=== PATIENT | female | born 2005 | race Hispanic/Latino ===

== ENCOUNTER 2024-09-14 07:39 | Emergency (ER) | payer SELFPAY ==
[2024-09-14 07:41] VITALS: BP 142/82
[2024-09-14 08:19] VITALS: BMI 39.3
[2024-09-14 08:23] VITALS: BP 107/95
[2024-09-14] MEDS: NSS 1000 IV (08:38)
[2024-09-14] MEDS: ZOFRAN 4 MG IV (08:39)
[2024-09-14] MEDS: PEPCID 20 MG IV (08:39)
[2024-09-14 08:47] LABS: % Basophils 0.2 % (0-2); % Eosinophils 0.4 % (0-6); % Immature Granulocytes 0.4 % (0-0.5); % Lymphocytes 6.9 % (20.5-51.1); % Monocytes 4.5 % (1.7-9.3); % Neutrophils 87.6 % (42.2-75.2); Absolute Eosinophils 0.1 10^3/uL (0-0.7); Absolute Immature Granulocytes 0.1 10^3/uL (0-0.05); Absolute Lymphocytes 0.9 10^3/uL (1.2-3.4); Absolute Monocytes 0.6 10^3/uL (0.1-0.6); Absolute Neutrophils 11.1 10^3/uL (1.4-6.5); Hematocrit 44.7 % (37.0-47.0); Hemoglobin 14.7 g/dL (12.0-16.0); Mean Corp Hgb Conc. 32.9 g/dL (33.0-37.0); Mean Corpuscular Hgb 28.3 pg (27.0-31.0); Mean Platelet Volume 10.3 fL (7.4-10.4); Nucleated Red Blood Cells % 0 %; Platelet Count 245 10^3/uL (130-400); Red Cell Dist. Width 13.1 % (11.5-14.5); White Blood Cell Count 12.7 10^3/uL (4.8-10.8)
[2024-09-14 09:27] LABS: Urine Albumin Negative (Neg - Trace); Urine Bilirubin Negative (Negative); Urine Character Slightly Cloudy (Clear); Urine Color Yellow; Urine Glucose Negative (Negative); Urine Ketone Negative (Negative); Urine Leukocyte Negative (Negative); Urine Nitrite Negative (Negative); Urine Occult Blood Negative (Negative); Urine Specific Gravity 1.015 (<1.030); Urine Urobilinogen Negative (Neg - 1+)
--- NOTE | 2024-09-14 10:10 | ED.GENMED ---
History of Present Illness
General
Chief Complaint: Abdominal Symptoms
Source: patient
Exam Limitations: none
Time Seen by Provider: 09/14/24 07:56
Nursing documentation reviewed up to this point in time: agreed with
History of Present Illness
History of Present Illness:
19-year-old female presenting to the emergency department today with concerns of generalized abdominal pain nausea vomiting diarrhea occurred this morning. Multiple episodes of vomiting multiple episodes of loose brown stool. Cool abdominal pain
any fevers chest pain shortness of breath.
Review of Systems
Review of Systems
Allergies reviewed?: Yes
All Other Systems: ROS reviewed and negative except as documented in HPI and ROS
Phy Exam
Physical Exam
Physical Exam:
GENERAL: Alert , in no apparent distress
EYE: pupils equal and reactive
NECK: Supple, no significant adenopathy.
ENT: o/p clr, mmm.
CARDIAC: Regular rate and rhythm .
LUNGS: Clear breath sounds bilaterally, no acute respiratory distress, no wheezes/rales/rhonchi
ABDOMEN: Soft, without focal tenderness, no r/g, no cvat
NEUROLOGICAL: Alert and oriented, no focal neuro deficits
SKIN: Warm and dry, skin intact.
MUSCULOSKELETAL: No edema, well perfused.
PSYCH: Normal and appropriate interaction.
Course
Orders/Labs/Results
Orders:
Orders
09/14/24 08:04
0.9% Sodium Chloride 1000 ml [Nss] 1,000 ml IV BOLUS
Famotidine [Pepcid] 20 mg IV NOW STA
Ondansetron Injectable [Zofran] 4 mg IV NOW STA
Test Result ONCE
09/14/24 08:26
Complete Blood Count/With Diff Urgent
09/14/24 09:12
Urinalysis Reflex To Culture Urgent
Date Specimen was Collected: 09/14/24
Time Specimen was Collected: 09:09
09/14/24 10:09
Comprehensive Metabolic Panel Urgent
HCG, Serum Qualitative Screen Urgent
Lipase Urgent
Abnormal Lab Results
09/14/24 09/14/24
08:26 10:09
WBC 12.7 H 10^3/uL
(4.8-10.8)
MCHC 32.9 L g/dL
(33.0-37.0)
Abs Immat Gran (auto) 0.1 H 10^3/uL
(0-0.05)
Absolute Neuts (auto) 11.1 H 10^3/uL
(1.4-6.5)
Absolute Lymphs (auto) 0.9 L 10^3/uL
(1.2-3.4)
Neutrophils % 87.6 H %
(42.2-75.2)
Lymphocytes % 6.9 L %
(20.5-51.1)
Creatinine 0.5 L mg/dL
(0.6-1.0)
Glucose 118 H mg/dl
(70-99)
09/14/24 08:26
09/14/24 10:09
Vital Signs
Initial and Last Documented VS:
Initial Vital Signs
Temp Pulse Resp BP Pulse Ox
98.3 F 92 16 142/82 98
09/14/24 07:41 09/14/24 07:41 09/14/24 07:41 09/14/24 07:41 09/14/24 07:41
Last Documented Vital Signs
Temp Pulse Resp BP Pulse Ox
98.3 F 86 16 107/95 98
09/14/24 07:41 09/14/24 08:19 09/14/24 07:41 09/14/24 08:23 09/14/24 07:41
MDM/Problems Addressed
MDM/Problems Addressed:
19-year-old female presenting to the emergency department today with concerns of crampy abdominal pain nausea vomiting diarrhea starting earlier this morning. Normal vital signs upon arrival no vomiting here. Abdomen soft and benign. Likely
consistent with stomach bug considering abrupt nausea vomiting and diarrhea. Feeling much better here after receiving Zofran and fluids. Stable for discharge return precautions given.
*Critical Care Note
Total Time (30-74mins, 75-104mins- exclusive of procedures): Not Applicable
ED Attending Note
-
Portions of this chart may have been created with voice recognition software.� Occasional wrong word or��sound alike� substitutions may have occurred due to the inherent limitations of voice recognition software.
Discharge Plan
Departure
Patient Disposition: Home (Routine Discharge)
Date of Disposition: 09/14/24
Time of Disposition: 11:12
Patient with high blood pressure during this ER visit?: No
Condition: Good
Covid-19: Not Applicable
Discharge Problem:
Nausea, vomiting, and diarrhea
Instructions: Nausea and Vomiting, Adult (DC)
Prescriptions:
New
ondansetron 4 mg tablet,disintegrating
4 mg PO Q6H PRN (Reason: nausea and vomiting) Qty: 7 0RF
Referrals:
NONE,* [Family Provider] -
Stand Alone Forms: Return to Work
Activity Restrictions/Additional Instructions:
You came to the emergency department today with concerns of vomiting and diarrhea. Here you had a reassuring assessment. Please take the prescribed occasions every 8 hours as needed for ongoing symptoms. Return to the emergency department any
worsening, new or concerning symptoms.
Interventions
Interventions:
*Risk Screen - Suicide Last Done: 09/14/24 07:41
*General Assessment Last Done: 09/14/24 07:41
*Neglect/Abuse Screening Last Done: 09/14/24 07:41
ED- Fall Risk Assessment Last Done: 09/14/24 08:19
*ED COVID-19 Vaccine History Last Done: 09/14/24 08:19
TG-Nkdyib-Fqkumzgazg Assessment Last Done: 09/14/24 08:19
Discharge Date and Time
Print Language: YI
[2024-09-14 10:41] LABS: HCG, Serum Qualitative Screen Negative
[2024-09-14 10:45] LABS: ALT (SGPT) 29 U/L (0-35); AST (SGOT) 24 U/L (14-36); Albumin 4.1 g/dl (3.5-5.0); Alkaline Phosphatase 87 U/L (38-126); Blood Urea Nitrogen 17 mg/dl (7-17); Calcium 8.7 mg/dl (8.4-10.2); Carbon Dioxide 22 mmol/L (22-30); Chloride 107 mmol/L (98-107); Estimated Creatinine Clearance > 125 ml/min; Glucose 118 mg/dl (70-99); Lipase 53 U/L (23-300); Sodium 140 mmol/L (135-145); Total Bilirubin 0.6 mg/dl (0.2-1.3); eGFR > 60.00
[2024-09-14 11:26] VITALS: BP 118/52
== END 2024-09-14 11:29 | disposition home or self-care (01) ==
LOC: EMR 07:39
PROVIDERS: Physician Assistant; EMERGENCY PHYSICIAN Student in an Organized Health Care Education/Training Program
DX: R11.2 Nausea with vomiting, unspecified (principal); R19.7 Diarrhea, unspecified
CPT/HCPCS: 99284; 96374; 96375; 96361; 80053; 81003; 83690; 84703; 85025

== ENCOUNTER 2024-11-23 13:17 | Emergency (ER) | payer SELFPAY ==
[2024-11-23 13:21] VITALS: BMI 38.5
--- NOTE | 2024-11-23 13:43 | ED.GENMED ---
History of Present Illness
General
Chief Complaint: Vaginal Bleeding
Source: patient
Exam Limitations: none
Time Seen by Provider: 11/23/24 13:40
Nursing documentation reviewed up to this point in time: agreed with
History of Present Illness
History of Present Illness:
19-year-old female 10 days past IUD placement at [facility] in [place]. She had a few cramps since then and She states this is the week of her menses which typically bleeding starts to slow on day 3 but 2 days ago developed heavy
bleeding with clots. Between pads and tampons she has used 'multiple' yesterday and so far, since 10 a.m. today is on her 3rd pad.
Denies feeling weak or dizzy, denies CP, SOB.
Past History
Past History
ED Past Medical History: None
ED Past Surgical History: None
Social History
Tobacco: Non-smoker
Alcohol: None
Personal: Single
Living: other (with boyfriend)
Employment: Employed ([employer])
Review of Systems
Review of Systems
Allergies reviewed?: Yes
All Other Systems: ROS reviewed and negative except as documented in HPI and ROS
Constitutional: Denies fever, fatigue or chills
Respiratory: Denies trouble breathing
Cardiac: Denies chest pain
ABD/GI: Reports abdominal pain (cramps); Denies nausea, vomiting or diarrhea
: Denies dysuria, frequency or difficulty voiding
Musculoskeletal: Reports no symptoms
Skin: Reports no symptoms
Neurological: Reports no symptoms
Phy Exam
Physical Exam
Physical Exam:
GENERAL: No acute distress. A&Ox3.
CONSTITUTIONAL: Afebrile.
EYES: clear, conjunctivae normal
ENMT: moist mucus membranes
RESPIRATORY: Regular respirations, nonlabored, lungs clear.
CARDIOVASCULAR: Regular rate and rhythm, no murmurs, no rubs.
GI: Soft, nontender, normal BS
: small amount of blood on pad
MUSCULOSKELETAL: Moves with ease. Well perfused.
SKIN: Warm, dry, pink
PSYCH: Normal mood and affect. Well kept, interactive and appropriate
NEUROLOGIC: Awake, alert and oriented. No focal neurological deficits
Course
Orders/Labs/Results
Orders:
Orders
11/23/24 13:35
Complete Blood Count/With Diff Urgent
Comprehensive Metabolic Panel Urgent
HCG, Serum Qualitative Screen Urgent
Comment: ADD ON
11/23/24 13:41
Add On- LAB Urgent
Tests Added?: HCG serum qualitative
11/23/24 13:42
US Pelvis W Transvag Combined Urgent
Comment:
Reason For Exam: heavy bleeding/clots, abd pain post IUD placed.
Abnormal Lab Results
11/23/24
13:35
WBC 11.1 H 10^3/uL
(4.8-10.8)
Absolute Neuts (auto) 7.2 H 10^3/uL
(1.4-6.5)
Absolute Monos (auto) 0.7 H 10^3/uL
(0.1-0.6)
BUN 20 H mg/dl
(7-17)
Glucose 104 H mg/dl
(70-99)
11/23/24 13:35
11/23/24 13:35
Vital Signs
Initial and Last Documented VS:
Initial Vital Signs
Temp Pulse Resp Pulse Ox
97.9 F 93 18 99
11/23/24 13:21 11/23/24 13:21 11/23/24 13:21 11/23/24 13:21
Last Documented Vital Signs
Temp Pulse Resp Pulse Ox
97.9 F 93 18 99
11/23/24 13:21 11/23/24 13:21 11/23/24 13:21 11/23/24 13:21
MDM/Problems Addressed
Differential Diagnosis Includes:
menstrual cramps and bleeding, displaced IUD
MDM/Problems Addressed:
19-year-old female 10 days past IUD placement at [facility] in [place]. She had a few cramps since then and She states this is the week of her menses which typically bleeding starts to slow on day 3 but 2 days ago developed heavy
bleeding with clots. Between pads and tampons she has used 'multiple' yesterday and so far, since 10 a.m. today is on her 3rd pad.
Denies feeling weak or dizzy, denies CP, SOB.
Afebrile, NAD, small amount blood on pad, no clots
3:30 PM:
CBC, CMP with no clinically significant abnormality
hCG negative
Ultrasound pelvis with transvaginal combined: Radiology report read: No abnormality noted, IMPRESSION:
The IUD appears well-positioned within the endometrial canal.
BP 128/72 No significant bleeding since arrival
stable for discharge
Most likely menstrual bleeding
*Critical Care Note
Total Time (30-74mins, 75-104mins- exclusive of procedures): Not Applicable
ED Attending Note
-
Portions of this chart may have been created with voice recognition software.� Occasional wrong word or��sound alike� substitutions may have occurred due to the inherent limitations of voice recognition software.
Discharge Plan
Departure
Patient Disposition: Home (Routine Discharge)
Date of Disposition: 11/23/24
Time of Disposition: 15:29
Patient with high blood pressure during this ER visit?: No
Discharge Problem:
Heavy menstrual period
Instructions: Heavy Periods (DC), Intrauterine devices (IUDs)
Prescriptions:
No Action
ondansetron 4 mg tablet,disintegrating
4 mg PO Q6H PRN (Reason: nausea and vomiting) Qty: 7 0RF
Referrals:
Your, TAX ADVISOR provider [Other] - As needed
NONE,* [Family Provider] -
Activity Restrictions/Additional Instructions:
As we discussed, your workup here today shows nothing worrisome.
Your IUD is in the proper position.
See your TAX ADVISOR provider if your bleeding persists beyond 1 week or gets heavier or your abdominal cramping gets worse.
Tylenol or Ibuprofen as needed for cramps.
Interventions
Interventions:
*ED COVID-19 Vaccine History Last Done: 11/23/24 13:21
*Nursing Disposition Last Done: 11/23/24 16:04
Discharge Date and Time
Discharge Date/Time: 11/23/24 16:04
Print Language: PORTUGUESE
[2024-11-23 13:58] LABS: % Basophils 0.4 % (0-2); % Eosinophils 1.5 % (0-6); % Immature Granulocytes 0.4 % (0-0.5); % Lymphocytes 26.8 % (20.5-51.1); % Monocytes 5.9 % (1.7-9.3); Absolute Eosinophils 0.2 10^3/uL (0-0.7); Absolute Monocytes 0.7 10^3/uL (0.1-0.6); Absolute Neutrophils 7.2 10^3/uL (1.4-6.5); Hemoglobin 14.3 g/dL (12.0-16.0); Mean Corp Hgb Conc. 33.3 g/dL (33.0-37.0); Mean Corpuscular Volume 84.1 fL (81.0-99.0); Mean Platelet Volume 9.9 fL (7.4-10.4); Nucleated Red Blood Cells % 0 %; Platelet Count 266 10^3/uL (130-400); Red Blood Cell Count 5.11 10^6/uL (4.20-5.40); Red Cell Dist. Width 12.8 % (11.5-14.5); White Blood Cell Count 11.1 10^3/uL (4.8-10.8)
[2024-11-23 14:08] LABS: ALT (SGPT) 31 U/L (0-35); AST (SGOT) 26 U/L (14-36); Albumin 4.5 g/dl (3.5-5.0); Alkaline Phosphatase 96 U/L (38-126); Blood Urea Nitrogen 20 mg/dl (7-17); Calcium 10.1 mg/dl (8.4-10.2); Carbon Dioxide 28 mmol/L (22-30); Chloride 107 mmol/L (98-107); Estimated Creatinine Clearance 105 ml/min; Glucose 104 mg/dl (70-99); Potassium 4.3 mmol/L (3.5-5.1); Sodium 142 mmol/L (135-145); Total Bilirubin 0.6 mg/dl (0.2-1.3); eGFR > 60.00
[2024-11-23 14:13] LABS: HCG, Serum Qualitative Screen Negative
== END 2024-11-23 16:04 | disposition home or self-care (01) ==
LOC: EMR 13:17
PROVIDERS: Emergency Medicine; EMERGENCY PHYSICIAN Emergency Medicine
DX: N92.0 Excessive and frequent menstruation with regular cycle (principal); Z97.5 Presence of (intrauterine) contraceptive device
CPT/HCPCS: 99284; 76830; 76856; 80053; 84703; 85025

== ENCOUNTER 2025-08-25 09:18 | Emergency (ER) | payer OTHER, SELFPAY ==
[2025-08-25 09:24] VITALS: BP 119/83
[2025-08-25 10:14] VITALS: BMI 37.7
[2025-08-25 10:44] LABS: COVID-19 Antigen Negative (Negative)
--- NOTE | 2025-08-25 10:52 | ED.GENMED ---
History of Present Illness
General
Chief Complaint: Breathing Problem
Source: patient
Exam Limitations: none
Time Seen by Provider: 08/25/25 09:35
Nursing documentation reviewed up to this point in time: agreed with
History of Present Illness
History of Present Illness:
Patient is a 20-year-old female with history of asthma presents to the ER for evaluation. Patient's had a cough and nasal congestion since Monday. She does have a diagnosis of asthma and has had an inhaler waiting for her at the pharmacy however
has not gotten the chance to pick it up. She complains of persistent cough. She denies any fever or chills. She does vape marijuana and nicotine.
She denies any fever or chills.
Past History
Past History
ED Past Medical History: None
ED Past Surgical History: None
Social History
Tobacco: Non-smoker
Alcohol: None
Personal: Single
Living: other (with boyfriend)
Employment: Employed ([employer])
Phy Exam
General Physical Exam
General Presentation: no apparent distress
General age: appears stated age
General Skin: warm and dry
General Habitus: normal
General Mental: alert
General Hydration: appears well hydrated
Cardiovascular Exam
Cardiovascular Exam: regular rate/rhythm, no murmur and normal peripheral pulses
Pulmonary Exam
Pulmonary Exam: lungs clear, no respiratory distress and other (+ cough mildly decreased )
Neurological Exam
Neurological Exam: alert and oriented x3
Musculoskeletal Exam
Musculoskeletal Exam: full ROM
Skin Exam
Skin Exam: normal color and warm/dry
Psychiatric Exam
Psychiatric Exam: normal mood/affect
Course
Orders/Labs/Results
Orders:
Orders
08/25/25 10:13
COVID-19 Antigen Urgent
Source: Nasal Swab
Influenza A+B Rapid Molecular Urgent
AMANDA Source: Nasal Swab
Specimen Description:
08/25/25 10:53
Albuterol Nebs [Ventolin Nebules] 2.5 mg INH R NOW STA
Dexamethasone Pf [Decadron] 10 mg PO NOW STA
Chest [CR Chest - 2 Views ] Urgent
Comment:
Reason For Exam: cough
08/25/25 12:45
Ipratropium/Albuterol Sulfate [Duoneb] 3 ml INH R NOW STA
Vital Signs
Initial and Last Documented VS:
Initial Vital Signs
Temp Pulse Resp BP Pulse Ox
98.4 F 86 16 119/83 95
08/25/25 09:24 08/25/25 09:24 08/25/25 09:24 08/25/25 09:24 08/25/25 09:24
Last Documented Vital Signs
Temp Pulse Resp BP Pulse Ox
98.4 F 92 16 119/83 96
08/25/25 09:24 08/25/25 10:23 08/25/25 09:24 08/25/25 09:24 08/25/25 10:53
MDM/Problems Addressed
Differential Diagnosis Includes:
Not limited to URI, bronchitis, pneumonia, COVID or influenza, asthma exacerbation
MDM/Problems Addressed:
Symptoms are consistent with URI/bronchitis and asthma exacerbation. Patient received nebs here feeling better. She is nontoxic in no acute distress x-ray is negative afebrile not hypoxic. She has an inhaler at the pharmacy instructed patient to
use the inhaler as needed.
Chronic conditions affecting care:
Asthma
*Radiology
Radiology exam reviewed: radiology read reviewed
*Pulse Oximetry
SaO2: 96
Oxygen Mode of Delivery: Room air
Patient hypoxic: no
*Critical Care Note
Total Time (30-74mins, 75-104mins- exclusive of procedures): Not Applicable
ED Attending Note
-
Portions of this chart may have been created with voice recognition software.� Occasional wrong word or��sound alike� substitutions may have occurred due to the inherent limitations of voice recognition software.
Discharge Plan
Departure
Patient Disposition: Home (Routine Discharge)
Date of Disposition: 08/25/25
Time of Disposition: 13:22
Patient with high blood pressure during this ER visit?: No
Condition: Fair
Covid-19: Not Applicable
Discharge Problem:
Asthma exacerbation, Acute viral syndrome
Instructions: Asthma, Adult (DC), Upper respiratory infection in adults - ED (DC)
Prescriptions:
No Action
ondansetron 4 mg tablet,disintegrating
4 mg PO Q6H PRN (Reason: nausea and vomiting) Qty: 7 0RF
Referrals:
Chante Alves, [Family Provider, Family Practice]
Stand Alone Forms: Return to Work
Activity Restrictions/Additional Instructions:
Be sure to get plenty of rest stay well-hydrated. Use your inhaler as needed. Follow-up with a family doctor next of days return if any worsening of symptoms. Please stop vaping!!
Interventions
Interventions:
*Risk Screen - Suicide Last Done: 08/25/25 09:24
*General Assessment Last Done: 08/25/25 09:24
*Neglect/Abuse Screening Last Done: 08/25/25 09:24
*ED- Fall Risk Assessment Last Done: 08/25/25 10:14
*ED COVID-19 Vaccine History Last Done: 08/25/25 10:14
*ED Influenza Vaccine History Last Done: 08/25/25 10:14
ED- Pulmonary Assessment Last Done: 08/25/25 10:45
Discharge Date and Time
Print Language: [place]
[2025-08-25] MEDS: DECADRON 10 MG PO (11:26)
[2025-08-25] MEDS: VENTOLIN NEBULES 2.5 MG INH (11:26)
[2025-08-25] MEDS: DUONEB 3 ML INH (12:54)
[2025-08-25 13:31] VITALS: BP 117/70
== END 2025-08-25 13:32 | disposition home or self-care (01) ==
LOC: EMR 09:18
PROVIDERS: Nurse Practitioner; EMERGENCY PHYSICIAN Emergency Medicine; FAMILY PHYSICIAN Family Medicine
DX: J45.901 Unspecified asthma with (acute) exacerbation (principal); B34.9 Viral infection, unspecified; F17.290 Nicotine dependence, other tobacco product, uncomplicated
CPT/HCPCS: 99284; 94640; 71046; 87502; 87811

== ENCOUNTER 2025-09-18 06:21 | Day surgery (SDC) | payer OTHER, SELFPAY ==
[2025-09-18] VITALS (8 sets, daily range): BP systolic 98–121; BP diastolic 54–76; BMI 38.4
[2025-09-18] MEDS: NORMOSOL-R/PLASMALYTE-A 1000 IV (08:31)
[2025-09-18] MEDS: ROXICODONE ORAL SOLUTION 5 MG PO (12:04)
== END 2025-09-18 13:00 | disposition home or self-care (01) ==
LOC: SDS 06:21
PROVIDERS: ATTENDING PHYSICIAN Otolaryngology
DX: J35.01 Chronic tonsillitis (principal); J34.3 Hypertrophy of nasal turbinates
CPT/HCPCS: 30140; 42826; 88304